=== PATIENT | female | born 1970 | race Caucasian/White ===

== ENCOUNTER 2020-10-27 03:47 | Emergency (ER) | payer MEDICAID ==
[~2020-10-27] VITALS: Ht 165.1 cm; Wt 185.0 kg
[2020-10-27] MEDS ORDERED: HYDROCODONE/ACETAMINOPHEN 5/325MG TABLET PO ONE (04:30)
[2020-10-27] MEDS ORDERED: IBUP-2029 MT (06:14)
[2020-10-27 06:59] VITALS: BP 131/71
== END 2020-10-27 07:01 | disposition home or self-care (01) ==
LOC: ER 03:47
DX: M25.512 Pain in left shoulder (principal); M25.562 Pain in left knee; R07.81 Pleurodynia; I10 Essential (primary) hypertension; W18.39XA Other fall on same level, initial encounter; Y93.89 Activity, other specified; Y92.89 Other specified places as the place of occurrence of the external cause; Y99.8 Other external cause status; Z91.018 Allergy to other foods
CPT/HCPCS: 71250; 73030; 73560; 73590; 74176; 99284